=== PATIENT | female | born 2000 | race Two or more races ===

== ENCOUNTER 2021-09-30 09:55 | Emergency (ER) | payer OTHER ==
[~2021-09-30] VITALS: Ht 149.9 cm; Wt 60.0 kg
[2021-09-30 12:09] VITALS: BP 105/67
== END 2021-09-30 12:50 | disposition home or self-care (01) ==
LOC: EMS 10:00
DX: Z11.1 Encounter for screening for respiratory tuberculosis (principal)
CPT/HCPCS: 71045; 99283